=== PATIENT | female | born 2000 | race Hispanic/Latino ===

== ENCOUNTER 2020-02-04 12:16 | Emergency (ER) | payer OTHER ==
[2020-02-05 11:01] LABS: SARS-CoV-2 MS2 Positive; SARS-CoV-2 N Gene Negative; SARS-CoV-2 S Gene Negative; SARS-CoV-2 by NAA Not Detected (NotDetected); SARS-CoV-2 orf1ab Negative
== END 2020-02-04 12:51 | disposition home or self-care (01) ==
LOC: ERS 12:16
DX: Z20.828 Contact with and (suspected) exposure to other viral communicable diseases (principal)
CPT/HCPCS: 87635; 99283; U0003